=== PATIENT | male | born 1985 | race Caucasian/White ===

== ENCOUNTER 2020-11-03 22:05 | Emergency (ER) | payer OTHER ==
[2020-11-03 22:13] VITALS: BP 131/86; PULSE 136; RESP 20; TEMP 97.9
--- NOTE | 2020-11-03 22:36 | ED ---
Alcohol HPI - General Chief Complaint: Alcohol Stated Complaint: Intoxicated Time Seen by Provider: 11/03/20 22:14 Source: police Mode of arrival: wheelchair Limitations: no limitations - History of Present Illness Initial Comments: This patient is a 35-year-old man brought for evaluation by law enforcement. The patient had reportedly fallen into a snow pile and then was having difficulty getting up. Here the patient states he is just had some drinks, but otherwise okay. He denies any trauma. He states that he wants to go home and that he doesn't have any medical issue. MD Complaint: alcohol intoxication Last Drink: just [employer] Time Since Last Drink: 1 -: hour(s) Recent Trauma: No Associated Symptoms: denies other symptoms Treatments Prior to Arrival: none - Related Data Allergies Allergy/AdvReac Type Severity Reaction Status Date / Time penicillin G Allergy Unknown Verified 11/03/20 22:14 Review of Systems ROS Statement: Those systems with pertinent positive or pertinent negative responses have been documented in the HPI. ROS Other: All systems not noted in ROS Statement are negative. Constitutional: Denies: fever, chills Respiratory: Denies: cough, dyspnea Cardiovascular: Denies: chest pain, palpitations Gastrointestinal: Denies: abdominal pain, vomiting, diarrhea Genitourinary: Denies: testicular pain Musculoskeletal: Denies: back pain Neurological: Denies: headache, weakness Psychiatric: Denies: depression, homicidal thoughts, suicidal thoughts Past Medical History Past Medical History: Unable to Obtain History of Any Multi-Drug Resistant Organisms: Unobtainable Past Surgical History: Unable to Obtain Past Psychological History: Unable to Obtain Smoking Status: Unknown if ever smoked Past Alcohol Use History: Unable to Obtain Past Drug Use History: Unable to Obtain General Exam Limitations: no limitations General appearance: alert, in no apparent distress Head exam: Present: atraumatic, normocephalic Eye exam: Present: normal appearance, PERRL, EOMI, nystagmus. Absent: scleral icterus, conjunctival injection ENT exam: Present: normal oropharynx Respiratory exam: Present: normal lung sounds bilaterally. Absent: respiratory distress, wheezes, rales, rhonchi, stridor Cardiovascular Exam: Present: regular rate, normal rhythm, normal heart sounds. Absent: systolic murmur, diastolic murmur, rubs, gallop GI/Abdominal exam: Present: soft. Absent: tenderness, guarding, rebound Back exam: Present: normal inspection. Absent: CVA tenderness (R), CVA tenderness (L), vertebral tenderness Neurological exam: Present: alert, oriented X3, CN II-XII intact. Absent: motor sensory deficit Skin exam: Present: warm, dry, intact, normal color. Absent: rash Course Vital Signs 11/03/20 22:10 Temperature 97.9 F Pulse Rate 136 H Respiratory 20 Rate Blood Pressure 131/86 O2 Sat by Pulse 96 Oximetry Medical Decision Making - Medical Decision Making Patient is a 35-year-old man who does appear intoxicated and has admitted to drinking. The exam does not reveal any evidence of trauma. Nursing staff is able to find an associate of the patient who will come and take responsibility for him and and take him home. Disposition Clinical Impression: Alcoholic intoxication Disposition: HOME SELF-CARE Condition: Good Instructions (If sedation given, give patient instructions): Alcohol Intoxication (ED) Is patient prescribed a controlled substance at d/c from ED?: No Referrals: Devyn Rios MD [Primary Care Provider] - 1-2 days
== END 2020-11-03 23:02 | disposition home or self-care (01) ==
LOC: EC 22:05
DX: F10.129 Alcohol abuse with intoxication, unspecified (principal); Y90.9 Presence of alcohol in blood, level not specified; Z88.0 Allergy status to penicillin
CPT/HCPCS: 99284